=== PATIENT | female | born 1980 | race Two or more races ===

== ENCOUNTER 2025-04-11 09:12 | Outpatient (CLI) | payer MEDICAID ==
--- NOTE | 2025-04-11 10:20 | DVH ---
RIGHT Upper Extremity Soft tissue ultrasound Clinical History: UNSPECIFIED LUMP IN RIGHT BREAST Comparison: 09/01/2024 Technique: Grayscale and Doppler sonographic images were obtained of the right axilla for the purposes of amalia carl of biopsy of previously demonstrated lesion. Findings: Previously demonstrated lesion was found to be a thrombosed superficial vein with few regional additi onal patent superficial veins. No axillary adenopathy was identified. Regional soft tissue shows no i ncreased vascularity. Impression: Previously mentioned right axillary lymph node found to be thrombosed superficial vein; Biopsy of ve in deferred. Spoke with patient and regarding findings.
== END 2025-04-11 17:00 | disposition home or self-care (01) ==
LOC: US 09:12
PROVIDERS: ATTEND Student in an Organized Health Care Education/Training Program
DX: N63.10 Unspecified lump in the right breast, unspecified quadrant (principal); N61.23 Granulomatous mastitis, bilateral breast; E61.1 Iron deficiency
CPT/HCPCS: 76881